=== PATIENT | female | born 1990 | race Caucasian/White ===

== ENCOUNTER 2016-07-19 00:17 | Emergency (ER) | payer SELFPAY ==
[~2016-07-19 00:17] MED LIST: BACTRIM DS TAB1 EAC2 PO; CONCERTA54 MG; KEFLEX500 M4 PO; NO HOME MEDICATION XX; STRATTERA40 MG; ZOFRAN ODT4 MG/UDTAB PO
[2016-08-18] MEDS ORDERED: ZITHROMAX250 M1 PO (03:07)
[2016-08-18] MEDS ORDERED: HYDROCODON-ACE1 EA16 PO (03:08)
[2017-02-01] MEDS ORDERED: CLARITIN10 M6 PO (16:00)
== END 2016-07-19 03:00 ==
LOC: EDMED 00:17
DX: S50.11XA Contusion of right forearm, initial encounter (principal); Z88.0 Allergy status to penicillin; W01.10XA Fall on same level from slipping, tripping and stumbling with subsequent striking against unspecified object, initial encounter

== ENCOUNTER 2016-08-23 23:12 | Emergency (ER) | payer SELFPAY ==
[~2016-08-23 23:12] MED LIST changes: +HYDROCODON-ACE1 EA16 PO; +ZITHROMAX250 M1 PO
[2017-02-01] MEDS ORDERED: CLARITIN10 M6 PO (16:00)
== END 2016-08-24 00:31 ==
LOC: EDMED 23:12
DX: H92.03 Otalgia, bilateral (principal); J01.90 Acute sinusitis, unspecified; Z88.0 Allergy status to penicillin